=== PATIENT | male | born 1960 | race Caucasian/White ===

== ENCOUNTER 2019-01-31 20:03 | Emergency (ER) | payer BC ==
[2019-01-31] MEDS ORDERED: Adacel (T-DAP) 0.5 ML SYRINGE ONE (22:01)
--- NOTE | 2019-01-31 22:23 | RAD ---
Exam:Right hand 3 views HISTORY: Pain. Trauma. COMPARISON: None FINDINGS: Joint spaces are preserved. No fracture. No cortical irregularity. No periosteal reaction. IMPRESSION: No fracture.
[2019-01-31] MEDS ORDERED: Lidocaine 1% (PF) 30 ML VIAL ONE (22:35)
[2019-01-31] MEDS ORDERED: Bacitracin 1 PK ONE (22:54)
== END 2019-01-31 23:01 | disposition home or self-care (01) ==
LOC: ERS 20:03
DX: S61.431A Puncture wound without foreign body of right hand, initial encounter (principal); F17.220 Nicotine dependence, chewing tobacco, uncomplicated; W45.8XXA Other foreign body or object entering through skin, initial encounter
CPT/HCPCS: 90471; 90715; J2001

== ENCOUNTER 2022-11-19 03:51 | Emergency (ER) | payer BC ==
[2022-11-19 04:49] LABS: #Basophils 0.1 thou/uL (0.0-0.2); #Eosinphils 0.2 thou/uL (0.0-0.7); #Monocytes 0.8 thou/uL (0.11-0.59); #Neutrophils 6.3 thou/uL (1.40-6.50); %Basophils 0.7 % (0.0-1.0); %Eosinophils 2.6 % (0.0-10.0); %Lymphocytes 21.7 % (21.0-51.0); %Monocytes 8.1 % (0.0-10.0); %Neutrophils 66.5 % (42.0-75.0); Hemoglobin 15.1 g/dL (14.0-18.0); Mean Corpuscular HGB CONC 33.9 g/dL (32.0-36.0); Mean Corpuscular Volume 88.5 fl (78.0-98.0); Platelet Count 251 10x3/uL (130-400); Red Blood Cell (RBC) Count 5.03 mill/uL (4.70-6.10); White Blood Cell (WBC) Count 9.4 10x3/uL (4.8-10.8)
[2022-11-19] MEDS ORDERED: Ondansetron PF 4 MG/2 ML Vial ONE (04:59)
[2022-11-19] MEDS ORDERED: Morphine 4 MG/ML VIAL ONE (04:59)
[2022-11-19 05:02] LABS: Bacteria/HPF None Seen HPF (None Seen); Bilirubin Negative (Negative); Blood, Urine Negative (Negative); CAUTI Indications for Culture Pelvic or flank pain; Clarity Clear (Clear); Glucose, Urine (Dipstick) Normal (Negative); Ketone, Urine Negative (Negative); Leukocyte Negative Leu/uL (Negative); Nitrite Negative (Negative); Protein, Urine (Dipstick) 30 mg/dL (Neg-Trace); Specific Gravity, Urine 1.035 (1.002-1.036); Squamous Epithelial None Seen HPF (0-3); Urobilinogen Normal mg/dL (Less than 2); WBC/HPF 0-3 HPF (0-3)
[2022-11-19 05:03] LABS: Urine Culture Reflex No No
[2022-11-19 05:14] LABS: ALT (SGPT) 23 U/L (8-55); AST (SGOT) 18 U/L (5-34); Albumin 4.3 g/dL (3.4-4.8); Alkaline Phosphatase 67 U/L (40-110); Anion Gap 12 mmol/L (10-20); BUN (Urea Nitrogen) 13 mg/dL (8.4-25.7); Bilirubin, Total 0.8 mg/dL (0.2-1.2); Calc. Creatinine Clearance 0 mL/min (70-130); Calcium 9.5 mg/dL (7.8-10.44); Carbon Dioxide 23 mmol/L (23-31); Chloride 106 mmol/L (98-107); Estimated GFR 74; Glucose 108 mg/dL (80-115); Lipase 33 U/L (8-78); Potassium 4.1 mmol/L (3.5-5.1); Protein, Total 7.3 g/dL (5.8-8.1); Sodium 137 mmol/L (136-145)
[2022-11-19] MEDS ORDERED: Iopamidol 370 76% 100 ML VIAL ONE (10:39)
== END 2022-11-19 07:58 | disposition home or self-care (01) ==
LOC: ERS 03:51
DX: R10.9 Unspecified abdominal pain (principal); Z87.891 Personal history of nicotine dependence
CPT/HCPCS: 74177; 80053; 81001; 83690; 85025; 96374; 96375; J2270; J2405; Q9967